=== PATIENT | male | born 1990 | race Caucasian/White ===

== ENCOUNTER 2016-10-15 05:11 | Emergency (ER) | payer OTHER ==
[~2016-10-15] VITALS: Ht 182.9 cm; Wt 70.3 kg
[2016-10-15 05:18] VITALS: BP 135/78
== END 2016-10-15 05:45 | disposition home or self-care (01) ==
LOC: ER 05:28
DX: S40.262A Insect bite (nonvenomous) of left shoulder, initial encounter (principal); F17.200 Nicotine dependence, unspecified, uncomplicated; W57.XXXA Bitten or stung by nonvenomous insect and other nonvenomous arthropods, initial encounter; Y92.89 Other specified places as the place of occurrence of the external cause; Y93.89 Activity, other specified; Y99.8 Other external cause status
CPT/HCPCS: 99281; A4606; Z7610; Z7502